=== PATIENT | female | born 1955 ===

== ENCOUNTER 2024-05-17 05:23 | Day surgery (SDC) | payer OTHER ==
[~2024-05-17 05:23] MED LIST: MIRAPEX ER1.5 MG PO
[2024-05-17] MEDS ORDERED: BUPIVACAINE HCL 30 ML VIAL IJ ONE (12:15)
[2024-05-17] MEDS ORDERED: LIDOCAINE HCL 1%/EPINEPHRINE 20ML VIAL IJ ONE (12:15)
[2024-05-17] MEDS ORDERED: PIPERACILLIN/TAZOBACTAM SODIUM 3.375 GM VIAL IV ONE (12:15)
== END 2024-05-17 16:20 | disposition home or self-care (01) ==
LOC: CIR.AMB 05:23
PROVIDERS: ATTEND Colon & Rectal Surgery
DX: D12.8 Benign neoplasm of rectum (principal); D12.9 Benign neoplasm of anus and anal canal; E78.5 Hyperlipidemia, unspecified